=== PATIENT | female | born 1985 | race Caucasian/White ===

== ENCOUNTER 2016-10-05 11:59 | Inpatient (IN) | payer OTHER ==
[2016-10-05] VITALS (22 sets, daily range): BP systolic 102–146; BP diastolic 62–96; PULSE 60–157; TEMP 97.6–98.2
[~2016-10-05] VITALS: Ht 167.6 cm; Wt 88.6 kg
[~2016-10-05 11:59] MED LIST: CLARITIN 1010 MG/TAB PO; MOTRIN 800800 MG/TAB PO; PERCOCET 325 MG1 TA2 PO; PRENATAL1 TA7 PO; PRIL40 PO
[2016-10-05] MEDS ORDERED: PRIL40 PO (12:25)
[2016-10-05] MEDS ORDERED: CLARITIN 1010 MG/TAB PO (12:25)
[2016-10-05] MEDS ORDERED: OSCAL 500 TAB500 MG PO (12:26)
[2016-10-05 13:08] LABS: BASO % 0.2 % (0.0-2.0); EOS % 0.2 % (0-4.0); GRAN # 11.6 (1.4-6.5); GRAN % 79.8 % (42.2-75.2); LYMPH # 1.8 (1.2-3.4); LYMPH % 12.5 % (20.0-51.0); MEAN CELL VOLUME 93 fl (80.0-100.0); MEAN CORPUSCULAR HGB CONC 33 g/dl (33.0-37.0); MEAN PLATELET VOLUME 10.6 fl (7.4-10.4); MONO % 6.8 % (1.7-9.3); PLATELET COUNT 249 K/mm3 (130-400); REDCELL DISTRIBUTION WIDTH-CV 12.5 % (11.5-14.5); WHITE BLOOD COUNT 14.6 K/mm3 (4.8-10.8)
[2016-10-05 13:11] LABS: HEMATOCRIT 33.6 % (37.0-47.0); HEMOGLOBIN 11.2 g/dl (12.5-16.0); MEAN CORPUSCULAR HEMOGLOBIN 31 pg (27.0-31.0)
[2016-10-06 00:51] VITALS: BP 126/72; PULSE 70
[2016-10-06 04:15] VITALS: BP 130/70; PULSE 80; TEMP 98.2
[2016-10-06] MEDS ORDERED: IBU800 M1 PO (08:48)
[2016-10-06 09:25] VITALS: BP 125/79; PULSE 89
== END 2016-10-06 18:40 | disposition home or self-care (01) | DRG 775 ==
LOC: LDRO 11:59 → OB 12:30 → LDR 12:30 → OB 19:00 → LDRO 10-14 08:53
PROVIDERS: Student in an Organized Health Care Education/Training Program
PROC: 10E0XZZ Delivery of Products of Conception, External Approach (ICD-10-PCS; principal; 2016-10-05)
PROC: 0KQM0ZZ Repair Perineum Muscle, Open Approach (ICD-10-PCS; 2016-10-05)
DX: O77.0 Labor and delivery complicated by meconium in amniotic fluid (principal); O70.1 Second degree perineal laceration during delivery; O69.81X0 Labor and delivery complicated by cord around neck, without compression, not applicable or unspecified; Z3A.38 38 weeks gestation of pregnancy; Z37.0 Single live birth
CPT/HCPCS: J2590; J7120

== ENCOUNTER 2019-04-29 01:00 | Inpatient (IN) | payer BC ==
[~2019-04-29] VITALS: Ht 167.6 cm; Wt 87.7 kg
[2019-04-29] VITALS (39 sets, daily range): BP systolic 98–137; BP diastolic 55–89; PULSE 66–100; TEMP 97.5–98.5
[~2019-04-29 01:00] MED LIST changes: +IBU800 M1 PO; +OSCAL 500 TAB500 MG PO
--- NOTE | 2019-04-29 01:05 | NUR ---
PT TO UNIT AMBULATORY WITH SPOUSE WITH CONCERNS OF CONTRACTIONS THAT BEGAN AT APPROXIMATLEY 2330. ORIENTED TO ROOM, CHANGED INTO GOWN, VS OBTAINED, EFM X2 APPLIED, SVE PERFORMED.
[2019-04-29] MEDS ORDERED: SLOW FE142 MG PO (01:24)
[2019-04-29] MEDS ORDERED: TUMS500 MG PO (01:24)
--- NOTE | 2019-04-29 02:46 | NUR ---
PT OFF MONITORS TO USE BATHROOM AND AMBULATE HALLS.
--- NOTE | 2019-04-29 03:27 | NUR ---
PT ON MONITORS AFTER AMBULATION.
[2019-04-29 04:21] LABS: BASO % 0.2 % (0.0-2.0); EOS # 0.1 (0.0-0.7); EOS % 0.5 % (0-4.0); GRAN # 8.9 (1.4-6.5); HEMOGLOBIN 10.5 g/dl (12.5-16.0); LYMPH # 1.8 (1.2-3.4); LYMPH % 15.4 % (20.0-51.0); MEAN CELL VOLUME 94 fl (80.0-100.0); MEAN CORPUSCULAR HEMOGLOBIN 30 pg (27.0-31.0); MEAN CORPUSCULAR HGB CONC 32 g/dl (33.0-37.0); MONO # 0.8 (0.1-0.6); PLATELET COUNT 290 K/mm3 (130-400); RED BLOOD COUNT 3.51 M/mm3 (4.10-5.30); REDCELL DISTRIBUTION WIDTH-CV 14.1 % (11.5-14.5)
[2019-04-29 04:23] LABS: HEMATOCRIT 32.9 % (37.0-47.0)
--- NOTE | 2019-04-29 06:08 | NUR ---
0505- PT REQUESTS EPIDURAL, STATES POSSIBLE SROM. AMNIOSWAB NEGATIVE, SVE PERFORMED, NO FLUID VISUALIZED AND BULGING BABY FELT, SVE 5-6/80/-2. 0513- Melysas HANDY CRNA NOTIFIED OF PT REQUEST FOR EPIDURAL, WILL COME PLACE EPIDURAL. 0545- Kashmir BELLAMY CRNA ON UNIT FOR EPIDURAL PLACEMENT. 0548- THIS NURSE IN ROOM, PT SITTING UP AT BEDSIDE FOR EPIDURAL PLACEMENT. 0549- ALVARO HOLLOWAY IN ROOM FOR EPIDURAL PLACEMENT. 0600- TEST DOSE PLACED BY Kashmir BELLAMY CRNA, PT TOLERATED WELL. 0608- PT REPOSITIONED IN SEMIFOWLERS.
--- NOTE | 2019-04-29 06:52 | NUR ---
Massey catheter placed and patient tolerates well. SVE-6-7/80/-2 Dr. Barrientos called and updated. No new orders given at this time.
--- NOTE | 2019-04-29 10:00 | NUR ---
Dr Barrientos at bedside and assessing patient and FHR strip. 1003: SVE-7/90/-2 and AROM of bag at this time with clear fluid noted. Plan of care discussed.
--- NOTE | 2019-04-29 10:30 | NUR ---
Dr. Barrientos at nurses station and reviewing FHR strip. Orders to begin pitocin at this time. 1035: Plan of pitocin infusion discussed with patient and patient agrees to plan. Pitocin started at this time per protocol at 2mU.
--- NOTE | 2019-04-29 13:42 | NUR ---
1135: SVE- and pericare done. Patient sitting up. 1205: Patient states she is having for more pressure. SVE--/-1 1220: Patient feeling alot more pressure. SVE per Brooks BARTLETT 1227: notified and on the way. 1230: Massey catheter removed and patient tolerates well. Patient feeling pressure. 1235: SVE-/+[address] Barrientos at nurses station and notified. 1238: Dr. Barrientos at bedside and patient set up for vaginal delivery. Bed taken apart and pericare done. 1241: Patient begins to push with contractions per orders. 1244: Spontaneous vaginal delivery of viable baby girl, head followed by body, infant bulb syringed and to patients abdomen and S. Ivonne RN assumes care of . Cord clamped by physician and cut by FOB. Cord blood obtained. repairs laceration at this time. 1254: Delivery of placenta and pitocin bolus started per protocol at 333mU. Fundal massage done/boggy tone/moderate bleeding- Dr Barrientos order for methergine IM at this time. 1258: Methergine IM given in left thigh and patient tolerates well. Fundal massage done/firm/bleeding WNL. Pericare done and patient repositioned. Plan of care discussed.
--- NOTE | 2019-04-29 14:40 | NUR ---
Patient dangles feet on edge of bed, epidural catheter removed and patient toelrates well. Patient ambulates to bathroom with standby assist. Voids, pericare done, new gown/underwear/pad on. Patient to via wheelchair and oriented and whiteboard gone over. Plan of care discussed.
--- NOTE | 2019-04-29 16:30 | NUR ---
Assumed care patient. Rests in bed, alert. Holding baby. Denies any needs at this time.
[2019-04-30] VITALS: BP 117/72; PULSE 72; TEMP 98.6
[2019-04-30 04:00] VITALS: BP 89/47; PULSE 65; TEMP 98.5
[2019-04-30 08:00] VITALS: BP 110/72; PULSE 72; TEMP 97.7
[2019-04-30] MEDS ORDERED: IBU600 MG PO (08:44)
[2019-04-30] MEDS ORDERED: PERCOCET 325 MG1 TA2 PO (08:44)
[2019-04-30 12:30] VITALS: BP 108/77; PULSE 78
[2019-04-30 16:25] VITALS: BP 120/72; PULSE 80; TEMP 98.2
[2019-04-30 22:57] VITALS: BP 120/68; PULSE 72; TEMP 98.2
[2019-05-01 08:10] VITALS: BP 119/71; PULSE 93; TEMP 98.2
--- NOTE | 2019-05-01 09:35 | NUR ---
Patient given discharge instructions. Reviewed warning signs and reasons to call or return. Ecnouraged to follow up as scheduled. Patient denies questions and escorted off unit by this RN with infant/
== END 2019-05-01 09:35 | disposition home or self-care (01) | DRG 807 ==
LOC: LDRO 01:00 → LDR 01:58 → LDRO 03:57 → OB 03:58 → LDR 03:58 → OB 15:00
PROVIDERS: ADMIT Obstetrics & Gynecology
PROC: 10E0XZZ Delivery of Products of Conception, External Approach (ICD-10-PCS; principal; 2019-04-29)
PROC: 0KQM0ZZ Repair Perineum Muscle, Open Approach (ICD-10-PCS; 2019-04-29)
DX: O99.62 Diseases of the digestive system complicating childbirth (principal); Z37.0 Single live birth; O70.1 Second degree perineal laceration during delivery; O62.2 Other uterine inertia; O99.02 Anemia complicating childbirth; K21.9 Gastro-esophageal reflux disease without esophagitis; Z3A.38 38 weeks gestation of pregnancy
CPT/HCPCS: J2210; J2590; J7120

== ENCOUNTER → 2019-05-21 | Outpatient (CLI) | payer BC ==
[~2019-05-21] MED LIST changes: +IBU600 MG PO; +SLOW FE142 MG PO; +TUMS500 MG PO
--- NOTE | 2019-05-21 11:59 | NUR ---
Pt, Monica Arredondo, presents to walk-in clinic with 3 week old baby girl, Irena Arredondo, with c/o soreness to nipples with . Irena was born on [birth year] and weighed 7#4.8oz (3310 gms). She is pt's 3rd baby and she states she did not have ongoing pain with the other babies. Today Irena weighs 8#1.4oz for a gain of 12oz in 3 weeks. Pt reports Irena still eats q 1-2 hours, generally both breasts each feeding. Voids and stools continue to be WNL. Upon examination of the nipples, the appear normal, no visable abrasions or errythema noted. With initial latch Irena appears to take a good portion of the nipple and areola, but because of the pain she is removed. Compression line is noted across face of nipple. Pt is advised on compression of areola under the top and bottom lip to get deeper latch. Pt states latch/ is not painful. Pt independantly latches baby to second side using instructions provided, denies pain. Occassional "squeeking" noted while Irena breastfeeds, similar to a stridor noise. Increased RR, as is common with BF, but no color change noted. Pt advised if the squeeking is persistant it is okay to unlatch, let Irena slow her breathing a bit and then re-latch. After Irena has a weight gain of 1.2oz (36 gms) from the left breast and 2.4 oz (68gms) for a total gain of 3.6 oz (104 gms). Impression: Pt has larger nipples, baby likely taking what is easy for her to latch onto, but not deep enough for pt to feel more comfortable. Expect as baby continues to grow this will resolve. POC: Continue and compressing more areola into baby's mouth for more comfortable latch. F/U: As desired at clinic, with Dr. Mckeon and Dr. Barrientos as scheduled. Questions invited and answered.
== END ==
LOC: OLC 11:14
DX: Z39.1 Encounter for care and examination of lactating mother (principal)